=== PATIENT | female | born 1975 | race Caucasian/White ===

== ENCOUNTER → 2018-01-05 | Day surgery (SDC) | payer OTHER ==
[~2018-01-05] VITALS: Ht 172.7 cm; Wt 63.5 kg
[~2018-01-05] MED LIST: BYSTOLIC2.5 MG PO; BYSTOLIC5 M1 PO; HYDROCHLOROTHIA25 M1 PO; PORTIA-28 TABL1 EACH PO; QUASENSE 30 MCG1 TAB PO
--- NOTE | 2018-01-05 08:25 | Operative Report ---
Operative/Inv Procedure Report Surgery Date: 01/05/18 Name of Procedure: Right nipple exploration and excision mass Pre-Operative Diagnosis: Right breast chronic abscess, residual breast mass Post-Operative Diagnosis: Same Estimated Blood Loss: scant Surgeon/Oracle Fusion Developer: Herminia Albert MD Anesthesia: local monitored anesthesi Specimens: Right breast mass Operative/Procedure Note Note: Patient is status post multiple episodes of ductal inflammation and chronic abscess. She status post incision and drainage of the left nipple. She remains a smoker. After resolving an episode of acute inflammation, she was brought to the operating for excision of the residual mass. Incision was administered after appropriate timeout and the right breast prepped and draped in a sterile fashion using ChloraPrep. 2 g of Ancef was given. Local anesthesia 1% lidocaine exception Marcaine was given in circumareolar fashion. A radial incision was made to encompass an ellipse of skin up to the base of the nipple. The mass was excised using electrocautery and sharp dissection. It was marked for orientation using margin map. Hemostasis was achieved using electrocautery. The deep tissue was approximated using interrupted Vicryl sutures and the skin was closed using a running Biosyn subcuticular stitch. Steri-Strips and sterile dressings were applied and patient is transferred to the recovery room in satisfactory condition having tolerated the procedure well.
== END ==
LOC: STS 03:28
DX: N61.1 Abscess of the breast and nipple (principal); I10 Essential (primary) hypertension; F17.200 Nicotine dependence, unspecified, uncomplicated
CPT/HCPCS: 36415; 81025; J0131; J0690; J2250; J3490